=== PATIENT | male | born 1935 ===

== ENCOUNTER 2018-08-08 20:43 | Inpatient (IN) ==
[2018-08-08 22:08] LABS: BE 1.7 mmoll (-3.0-3.0); BLOOD TYPE ARTERIAL; HCO3-(ACT) 26.2 mmoll (20.0-26.0); METHB 0.7 % (0.0-1.5); O2(CT) 19.2 mL/dL (15.0-23.0); O2HB 94.5 % (95.0-99.0); PCO2(98.6) 32 mmHg (35-45); PO2(98.6) 81 mmHg (60-100); SAMPLE BLOOD; SAO2 95.9 % (95.0-100.0); THB 14.4 g/dL (11.5-17.4); pH(98.6) 7.49 (7.35-7.45)
[2018-08-08 22:11] LABS: ALLEN TEST YES; MODALITY CANNULA
[2018-08-08 22:58] LABS: BASO# 0.01 X1000 (0.0-0.2); BASO% 0.1 % (0.0-0.8); EOS# 0.01 X1000 (0.0-0.7); EOS% 0.1 % (0.0-10.0); HEMATOCRIT 42.5 % (42.0-52.0); HEMOGLOBIN 14.5 g/dL (14.0-18.0); IMM GRAN# 0.04 X1000 (0.0-0.04); IMM GRAN% 0.3 % (0.0-0.5); LYMPH# 0.47 X1000 (1.2-3.4); MCH 30.8 PG (27-31); MCHC 34.1 g/dL (33-37); MCV 90.2 FL (81-99); MONO# 0.34 X1000 (0.11-0.59); MONO% 2.2 % (1.7-9.3); MPV 10.6 FL (7.4-10.4); NEUT# 14.66 X1000 (1.4-6.5); NEUT% 94.3 % (42.2-75.2); PLT 218 X1000 (130-400); RBC 4.71 XMIL (4.7-6.1); RDW 14.5 % (11.5-14.5); WBC 15.53 X1000 (4.8-10.8)
[2018-08-08 23:08] LABS: ALBUMIN 3.5 g/dL (3.5-5.0); CALCIUM 9.6 mg/dL (8.8-10.2); CREATININE 1.7 mg/dL (0.7-1.2); POTASSIUM 4.3 mmol/L (3.5-5.1); TOTAL BILIRUBIN 0.5 mg/dL (0.20-1.00); TOTAL PROTEIN 7.2 g/dL (6.3-8.3)
[2018-08-08 23:35] LABS: BILIRUBIN URINE NEGATIVE (NEGATIVE); BLOOD URINE 4+ (NEGATIVE); CLARITY VERY CLOUDY (CLEAR); COLOR YELLOW; KETONE URINE NEGATIVE (NEGATIVE); LEUKOCYTES URINE 2+ (NEGATIVE); NITRITE URINE POSITIVE (NEGATIVE); PROTEIN URINE 2+(100 mg/dL) mg/dL (NEGATIVE); URINE RBC 20-40 /HPF (<10); URINE SOURCE CATH; UROBILINOGEN URINE NORMAL
[2018-08-08 23:36] LABS: URINE BACTERIA 3+ /HFP; URINE CRYSTAL CA OXALATE PRESENT /HPF; URINE EPITHELIAL CELLS <10 /HPF (<10)
[2018-08-09] LABS: UR AMPHETAMINES QUAL NONE DETECTED (NONE DETECT); UR BARBITUATES QUAL NONE DETECTED (NONE DETECT); UR BENZODIAZEPIN QUAL NONE DETECTED (NONE DETECT); UR CANNABINOIDS QUAL NONE DETECTED (NONE DETECT); UR COCAINE QUAL NONE DETECTED (NONE DETECT); UR METHADONE QUAL NONE DETECTED (NONE DETECT); UR METHAMPHETAMINE QUAL NONE DETECTED (NONE DETECT); UR OPIATES QUAL NONE DETECTED (NONE DETECT); UR OXYCODONE QUAL NONE DETECTED (NONE DETECT); UR PCP QUAL NONE DETECTED (NONE DETECT); UR PROPOXYPHENE QUAL NONE DETECTED (NONE DETECT); UR TCA QUAL PRESUMPTIVE POSITIVE (NONE DETECT)
[2018-08-09] MEDS ORDERED: MAXIPIME 2 GM in NS 100 ML IV ONE (00:46)
[2018-08-09] MEDS ORDERED: NS 1,000 ML IV ONE ×3 (00:48→02:30)
--- NOTE | 2018-08-09 00:58 | PROVIDER DOCUMENTATION ---
HPI-Fever - General Chief Complaint: Altered Mental Status Stated Complaint: General Adult Time Seen by Provider: 08/08/18 21:08 Source: family Allergies/Adverse Reactions: Patient Allergies Allergy/AdvReac Type Severity Reaction Status Date / Time canagliflozin [From Invokana] Allergy ANAPHYLAXIS Verified 08/08/18 13:48 dapagliflozin [From Farxiga] Allergy ANAPHYLAXIS Verified 08/08/18 13:48 Home Medications: Home Medication List Medication Instructions Recorded Confirmed Last Taken Type Atenolol 1 tab PO DAILY 08/08/18 08/08/18 08/08/18 07:00 History Azelastine 137 Mcg Nasal [place] 2 spray BELIA BID 08/08/18 08/08/18 08/08/18 07:00 History [Astelin Nasal [place]] Buspirone HCl [Buspar] 1 tab PO BID 08/08/18 08/08/18 08/08/18 07:00 History Cholecalciferol (Vitamin D3) 1 cap PO DAILY 08/08/18 08/08/18 08/08/18 07:00 History [Vitamin D3] Divalproex [Depakote] 1 tab PO QHS 08/08/18 08/08/18 08/07/18 19:00 History Donepezil [Aricept] 1 tab PO QHS 08/08/18 08/08/18 08/07/18 19:00 History Insulin Glargine,Hum.rec.anlog 40 units SQ QHS 08/08/18 08/08/18 08/07/18 19:00 History [Charissa Garcia] Insulin Lispro [Humalog] See Protocol SQ 4XDAY 08/08/18 08/08/18 Unknown History Metformin HCl 1 tab PO BID 08/08/18 08/08/18 08/08/18 09:00 History Mirtazapine [Remeron] 1 tab PO DAILY 08/08/18 08/08/18 08/07/18 19:00 History Multivitamin [Multi-Vitamin Daily] 1 tab PO DAILY 08/08/18 08/08/18 08/08/18 07: 00 History Quetiapine Fumarate [Seroquel] 1 tab PO DAILY 08/08/18 08/08/18 08/08/18 07:00 History Quetiapine Fumarate [Seroquel] 1 tab PO QHS 08/08/18 08/08/18 08/07/18 19:00 History Quinapril HCl [Accupril] 1 tab PO DAILY 08/08/18 08/08/18 08/08/18 07:00 History ROSUVAstatin [Crestor] 1 tab PO QHS 08/08/18 08/08/18 08/07/18 19:00 History Tramadol [Ultram] 1 tab PO Q6H PRN PRN 08/08/18 08/08/18 08/08/18 07:00 History Trazodone [Desyrel] 1 tab PO QHS 08/08/18 08/08/18 08/07/18 19:00 History - History of Present Illness-Fever Nature of Presenting Problem: altered mental status hx of dementia aggressive behavior t2dm Onset/Duration: reports: 24 hours ago Review of Systems - Adult - REVIEW OF SYSTEMS - ADULT Constitutional: reports: no symptoms reported Past History - Adult - PAST MEDICAL HISTORY-ADULT Review of Records: reports: Old Records Reviewed, Nursing Assessment Review, Medications Reviewed, Social history reviewed & non-contributory. Cardiovascular: reports: A-Fib Physical Exam-General - PHYSICAL EXAM-ADULT Initial Vital Signs Reviewed: Yes - CONSTITUTIONAL General Appearance: moderate distress, obtunded - EYES Eyes: PERRL/EOMI - HEAD, EARS, NOSE, MOUTH & THROAT HENMT: normocephalic/atraumatic, normal ENT inspection, TMs normal, dental decay - NECK Neck: full range of motion, supple - RESPIRATORY Respiratory: rales, rhonchi, other (sathya chan respiratory pattern) - CARDIOVASCULAR Cardiovascular: irregularly irregular - GASTROINTESTINAL (ABDOMEN) Abdominal Exam: soft - LYMPHATIC Lymphatic: no adenopathy - MUSCULOSKELETAL Back Exam: no CVA tenderness Extremity: normal range of motion, non-tender, normal gait Peripheral Pulses: dorsalis-pedis (R): 1+, dorsalis-pedis (L): 1+ - SKIN Integumentary: normal color, normal turgor - NEUROLOGIC Neurologic: grossly normal - PSYCHIATRIC Psych/Mental Status: oriented x 3 Progress - PLAN OF CARE/RESULTS Progress/Plan/Lab Results: Vital Signs - 8 hr 08/08/18 20:43 Temperature 98.7 F Pulse Rate 69 Respiratory Rate 20 Blood Pressure 117/59 O2 Sat by Pulse Oximetry 95 Laboratory Results - last 24 hr 08/08/18 08/08/18 08/08/18 20:53 22:00 22:28 WBC 15.53 H RBC 4.71 Hgb 14.5 Hct 42.5 MCV 90.2 MCH 30.8 MCHC 34.1 RDW Std Deviation 14.5 Plt Count 218 MPV 10.6 H Immature Gran % (Auto) 0.3 Neut % (Auto) 94.3 H Lymph % (Auto) 3.0 L [place] % (Auto) 2.2 Eos % (Auto) 0.1 Baso % (Auto) 0.1 Immature Gran # (Auto) 0.04 Neut # (Auto) 14.66 H Lymph # (Auto) 0.47 L [place] # (Auto) 0.34 Eos # (Auto) 0.01 Baso # (Auto) 0.01 Specimen Type ARTERIAL Sample Site R RADIAL pH 7.49 H pCO2 32 L pO2 81 HCO3 26.2 H Base Excess 1.7 Oxyhemoglobin 94.5 L ABG O2 Sat (Calculated) 19.2 ABG O2 Saturation 95.9 ABG Carboxyhemoglobin 0.80 ABG Methemoglobin 0.7 Hima Test YES A-a O2 Difference 107.0 Total Hemoglobin 14.4 Lactate 3.60 H Liter Flow 3.0 Blood Gas Modality CANNULA FiO2 % 32.0 Sodium Potassium Chloride Carbon Dioxide Anion Gap BUN Creatinine Estimated GFR/1.73 m2 BUN/Creatinine Ratio Glucose POC Glucose 282 H Calculated Osmolality Calcium Total Bilirubin AST ALT Alkaline Phosphatase Total Protein Albumin Globulin Albumin/Globulin Ratio Plasma Lactate TSH Urine Source Urine Color Urine Clarity Urine pH Ur Specific Gabbs Urine Protein Urine Ketones Urine Blood Urine Nitrite Urine Bilirubin Urine Urobilinogen Urine Microscopic RBC Urine WBC Urine Microscopic WBC Ur Epithelial Cells Urine Crystals Urine Bacteria Urine Glucose Urine Opiates Screen Ur Oxycodone Screen Urine Methadone Screen U Propoxyphene Qual Ur Barbituates Screen Ur Tricyclics Screen Ur Phencyclidine Scrn Ur Amphetamines Screen U Methamphetamines Scrn U Benzodiazepines Scrn Urine Cocaine Screen U Cannabinoids Screen Acetone Level 08/08/18 08/08/18 08/08/18 22:28 22:28 22:28 WBC RBC Hgb Hct MCV MCH MCHC RDW Std Deviation Plt Count MPV Immature Gran % (Auto) Neut % (Auto) Lymph % (Auto) [place] % (Auto) Eos % (Auto) Baso % (Auto) Immature Gran # (Auto) Neut # (Auto) Lymph # (Auto) [place] # (Auto) Eos # (Auto) Baso # (Auto) Specimen Type Sample Site pH pCO2 pO2 HCO3 Base Excess Oxyhemoglobin ABG O2 Sat (Calculated) ABG O2 Saturation ABG Carboxyhemoglobin ABG Methemoglobin Hima Test A-a O2 Difference Total Hemoglobin Lactate Liter Flow Blood Gas Modality FiO2 % Sodium 138 Potassium 4.3 Chloride 97 L Carbon Dioxide 25 Anion Gap 16 BUN 25 H Creatinine 1.7 H Estimated GFR/1.73 m2 39 BUN/Creatinine Ratio 15 Glucose 135 H POC Glucose Calculated Osmolality 282 Calcium 9.6 Total Bilirubin 0.50 AST 30 ALT 38 Alkaline Phosphatase 112 Total Protein 7.2 Albumin 3.5 Globulin 4.0 Albumin/Globulin Ratio 1.0 Plasma Lactate TSH 8.19 H Urine Source Urine Color Urine Clarity Urine pH Ur Specific Gab[place] Urine Protein Urine Ketones Urine Blood Urine Nitrite Urine Bilirubin Urine Urobilinogen Urine Microscopic RBC Urine WBC Urine Microscopic WBC Ur Epithelial Cells Urine Crystals Urine Bacteria Urine Glucose Urine Opiates Screen Ur Oxycodone Screen Urine Methadone Screen U Propoxyphene Qual Ur Barbituates Screen Ur Tricyclics Screen Ur Phencyclidine Scrn Ur Amphetamines Screen U Methamphetamines Scrn U Benzodiazepines Scrn Urine Cocaine Screen U Cannabinoids Screen Acetone Level NEGATIVE 08/08/18 08/08/18 08/08/18 22:28 23:19 23:19 WBC RBC Hgb Hct MCV MCH MCHC RDW Std Deviation Plt Count MPV Immature Gran % (Auto) Neut % (Auto) Lymph % (Auto) [place] % (Auto) Eos % (Auto) Baso % (Auto) Immature Gran # (Auto) Neut # (Auto) Lymph # (Auto) [place] # (Auto) Eos # (Auto) Baso # (Auto) Specimen Type Sample Site pH pCO2 pO2 HCO3 Base Excess Oxyhemoglobin ABG O2 Sat (Calculated) ABG O2 Saturation ABG Carboxyhemoglobin ABG Methemoglobin Hima Test A-a O2 Difference Total Hemoglobin Lactate Liter Flow Blood Gas Modality FiO2 % Sodium Potassium Chloride Carbon Dioxide Anion Gap BUN Creatinine Estimated GFR/1.73 m2 BUN/Creatinine Ratio Glucose POC Glucose Calculated Osmolality Calcium Total Bilirubin AST ALT Alkaline Phosphatase Total Protein Albumin Globulin Albumin/Globulin Ratio Plasma Lactate 4.4 H TSH Urine Source CATH Urine Color YELLOW Urine Clarity VERY CLOUDY A Urine pH 9.0 Ur Specific Gab[place] 1.010 Urine Protein 2+(100 mg/dL) A Urine Ketones NEGATIVE Urine Blood 4+ Urine Nitrite POSITIVE A Urine Bilirubin NEGATIVE Urine Urobilinogen NORMAL Urine Microscopic RBC 20-40 A Urine WBC 2+ A Urine Microscopic WBC 10-20 A Ur Epithelial Cells <10 Urine Crystals CA OXALATE PRESENT Urine Bacteria 3+ Urine Glucose 1+(100 mg/dL) A Urine Opiates Screen NONE DETECTED Ur Oxycodone Screen NONE DETECTED Urine Methadone Screen NONE DETECTED U Propoxyphene Qual NONE DETECTED Ur Barbituates Screen NONE DETECTED Ur Tricyclics Screen PRESUMPTIVE POSITIVE A Ur Phencyclidine Scrn NONE DETECTED Ur Amphetamines Screen NONE DETECTED U Methamphetamines Scrn NONE DETECTED U Benzodiazepines Scrn NONE DETECTED Urine Cocaine Screen NONE DETECTED U Cannabinoids Screen NONE DETECTED Acetone Level Orders Category Date Time Status CT HEAD W/O CONTRAST [CT] Stat Exams 08/08/18 23:24 Taken FLAT/UPRIGHT ABD/1 VIEW CHEST [RAD] Stat Exams 08/08/18 21:52 Taken ABG [RESP] Routine Lab 08/08/18 22:00 Completed ACETONE SERUM [CHEM] Stat Lab 08/08/18 22:28 Completed BLOOD CULTURE [BLDCUL] Stat Lab 08/08/18 21:55 Ordered CBC WITH ELECTRONIC DIFF [HEME] Stat Lab 08/08/18 22:28 Completed COMPREHENSIVE METABOLIC PANEL [CHEM] Stat Lab 08/08/18 22:28 Completed LACTATE, PLASMA [CHEM] Stat Lab 08/08/18 22:28 Completed TSH Stat Lab 08/08/18 22:[address] W/POSS RFLX CULT [URINALYSIS] Stat Lab 08/08/18 23:19 Completed URINE CULTURE [RM] Routine Lab 08/08/18 23:36 Ordered URINE DRUG SCREEN PL Stat Lab 08/08/18 23:19 Completed 0.9% Sodium Chloride Inj [Ns] 1,000 ml Med 08/09/18 00:48 Active IV 999 mls/hr CefEPIME [Maxipime] 2 gm Med 08/09/18 00:46 Active 0.9% Sodium Chloride Inj [Ns] 100 ml IV NOW Transfer/Admit Order [TRANSFER] Routine Transfer 08/09/18 00:49 Ordered Result Diagrams: 08/08/18 22:28 08/08/18 22:28 - XRAY 1 XRAY Study: Chest, other Impression: Abnormal (infiltrate left heart border) - CT/MRI 1 MRI Study: Brain Impression: Normal Departure - Departure Date of Disposition Decision: 08/09/18 Time of Disposition Decision: 01:04 DIAGNOSIS: Sepsis associated hypotension, Dementia, CAD (coronary artery disease) Disposition: ADMITTED INPATIENT 09 Certified Medical Emergency: Emergent Condition: Stable Referrals and Follow-Ups: None,PCP [Primary Care Provider] - - Critical Care Note This patient required my direct & personal management of CC.: No Attestation - Physician/ CRISTIN Attestation Patient care was provided by Advanced Practice Provider:: No The physician spent face to face time with patient:: Yes Advanced Practice Provider documentation review:: Supervising physician onsite and consulted in the evaluation and care of this patient. The physician did have a face to face encounter with the patient.
[2018-08-09] MEDS ORDERED: VANCOMYCIN 1 GM/NS 1 GM/250 ML IVPB IV ONE ×2 (02:52→09:00)
[2018-08-09] MEDS ORDERED: D50W SYRINGE IV ONE ×2 (02:55→16:03)
[2018-08-09 04:08] LABS: INR 1.2; PROTIME 15.8 Seconds (11.0-16.0)
[2018-08-09 04:09] LABS: PTT 35.5 Seconds (22.3-41.8)
[2018-08-09] MEDS: HUMALOG (PARKWAY) SUBQ SCH ×4 (06:40→21:14)
--- NOTE | 2018-08-09 06:55 | Diag Imaging Result Doc PS360 ---
FLAT/UPRIGHT ABD/1 VIEW CHEST - 08/08/2018 INDICATION: sob TECHNIQUE: COMPARISON: None FINDINGS: There is a left-sided dual-chamber pacemaker. There are sternotomy wires. There is cardiomegaly. Lung volumes are low with bibasilar nonspecific atelectasis. 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 There is mild constipation. No bowel obstruction or free air. IMPRESSION: Nonspecific findings. Electronically signed by Royce Bojorquez 08/09/2018 6:53 AM
--- NOTE | 2018-08-09 07:02 | Diag Imaging Result Doc PS360 ---
CT HEAD W/O CONTRAST - 08/08/2018 INDICATION: ams COMPARISON: None FINDINGS: There is mild diffuse cerebral atrophy. There is moderately advanced periventricular white matter chronic microvascular disease. No intracranial mass or hemorrhage. The skull is intact. The sinuses, mastoids, and middle ears are clear. IMPRESSION: Atrophy and chronic microvascular disease. No acute disease. This exam was performed using automated exposure control, adjustment of mA or kV according to patient size, and/or use of iterative reconstruction technique Electronically signed by Royce Bojorquez 08/09/2018 7:00 AM
[2018-08-09] MEDS ORDERED: NS 1,000 ML ONE (07:45)
[2018-08-09] MEDS ORDERED: D5 1/2 NS 1,000 ML IV SCH (08:45)
[2018-08-09] MEDS ORDERED: VANCOMYCIN IV PER PHARMACY MISC SCH (08:45)
[2018-08-09] MEDS ORDERED: DOPAMINE 800 MG/D5W 800 MG/500 ML IV.SOLN IV SCH (08:45)
[2018-08-09] MEDS ORDERED: DOPAMINE 800 MG/D5W 800 MG/250 ML IV.SOLN IV SCH (08:58)
[2018-08-09] MEDS: LEVOPHED 8 MG in D5 1/2 NS 250 ML IV SCH (09:24)
[2018-08-09 09:44] LABS: ALBUMIN 2.8 g/dL (3.5-5.0); BASO# 0.03 X1000 (0.0-0.2); BASO% 0.1 % (0.0-0.8); CALCIUM 8.4 mg/dL (8.8-10.2); CREATININE 1.8 mg/dL (0.7-1.2); EOS# 0.01 X1000 (0.0-0.7); HEMATOCRIT 35.4 % (42.0-52.0); HEMOGLOBIN 11.7 g/dL (14.0-18.0); IMM GRAN# 0.12 X1000 (0.0-0.04); IMM GRAN% 0.5 % (0.0-0.5); LYMPH# 1.21 X1000 (1.2-3.4); LYMPH% 4.6 % (20.5-51.1); MCH 30.5 PG (27-31); MCHC 33.1 g/dL (33-37); MCV 92.2 FL (81-99); MONO# 2.06 X1000 (0.11-0.59); MONO% 7.8 % (1.7-9.3); NEUT# 23.13 X1000 (1.4-6.5); PLT 166 X1000 (130-400); POTASSIUM 4.9 mmol/L (3.5-5.1); RBC 3.84 XMIL (4.7-6.1); RDW 14.8 % (11.5-14.5); TOTAL BILIRUBIN 0.4 mg/dL (0.20-1.00); TOTAL PROTEIN 5.9 g/dL (6.3-8.3); WBC 26.56 X1000 (4.8-10.8)
--- NOTE | 2018-08-09 09:58 | HISTORY AND PHYSICAL ---
ADDENDUM: Please find the details of the complete H and P done by [employer], Ms Jaja Cotter, in the chart. Briefly, Mr. Hernandez is said to be a resident of [facility], who has an indwelling catheter. I am unsure of the reason why. In any case, I understand he had also recently been treated for a right hip fracture. He is on a lot of psychotropic medications as well at home, and among his home medications, there is insulin, there are blood pressure medications, statin, metformin, and as I said, a lot of psychotropic medications. I understand that while he was in the custodial, he was getting more confused, more combative and disoriented, so he was sent to [facility] for psychiatric evaluation. He was just there for about an hour and he was sent over here. Upon presentation to the ER, at one point, his blood pressure was 117/59. It dropped to 95/53 and since then he has remained hypotensive. The patient was admitted to the ICU for suspicion of septic shock. PHYSICAL EXAMINATION: CURRENT VITALS: Blood pressure is 93/56 with a MAP of 72. Pulse is 66. Respiration is 23. Temperature 99.1 degrees. GENERAL EXAM: Mr. Hernandez is an 83-year-old gentleman. He is in bed. He seems to be breathing well without any accessory muscle use. HEENT: Mucosa is slightly dry. Anicteric. Acyanotic. NECK: Supple. There is no JVD. CHEST: Air entry is bilaterally reduced. Some faint crackles posteriorly in both lung simpson. CARDIOVASCULAR: Regular rate and rhythm. There are no murmurs, no rubs, no gallops. ABDOMEN: Soft. Bowel sounds are present. EXTREMITIES: No pedal edema. Distal pulses are present. CENTRAL NERVOUS SYSTEM: The patient is drowsy, eyes closed, but will withdraw very actively both lower extremities to painful stimulation. He also keeps mumbling certain words and stuff that I could not understand. MUSCULOSKELETAL: There is a healed scar on the right hip. There is also a sternotomy scar and there is a left anterior chest wall pacemaker generator pocket. LABORATORY DATA: This is from yesterday. WBC 15.53, hemoglobin 14.5, platelet count 218,000. There is no manual differential. Chemistry is also from yesterday. Sodium 138, potassium 4.3, chloride 97, bicarb 26, anion gap 16, BUN 25, creatinine 1.7. The patient TSH was 8.19. I did not see levothyroxine as one of his medications. We will repeat this with a free TSH. DIAGNOSTIC STUDIES: A flat and upright abdomen with chest view showed nonspecific, but the lung volumes are low with bibasilar nonspecific atelectasis. A CT scan of the head shows atrophy and chronic microvascular disease. No acute disease. CURRENT MEDICATIONS: 1. Cefepime 1 g q.12. 2. Half-normal saline with dextrose at 75 mL per hour. 3. Insulin sliding scale. 4. Vancomycin per pharmacy protocol. ASSESSMENT: 1. Septic shock. Presumably this is coming from the genitourinary system. However, pneumonia is also a high probability. The patient is currently covered with cefepime and vancomycin. We are going to continue this and wait for the cultures. 2. Altered mental status, presumably due to infectious encephalopathy. However, the patient is also on a lot of psychotropic medications and I would not be surprised if this is a combination of multiple factors, including infection, drugs, and a patient with baseline dementia. 3. Catheter-associated urinary tract infection. The patient does have an indwelling Escalante catheter. We are not sure what was the indication why and how long the catheter has been there. At any point, I think the catheter has been changed over here by our nursing staff and urine culture has already been ordered. We will continue with the current antibiotic coverage and wait for the report. 4. Elevated troponin. I presume this is due to a demand mismatch because of the septic shock. We are going to continue to follow this. If it is trending up, we will consult Cardiology. 5. Renal failure. Creatinine is at 1.7. We do not have any other previous labs in our system to compare. We are going to continue with this current hydration and re-evaluate his chemistries. If it is getting any worse, we will do renal studies and get Nephrology on board. 6. Abnormal TSH. The patient's TSH is 8.19. I do not see any medication in his list to suggest that he has thyroid abnormalities. We will repeat this and also do free TSH to make sure that he does not have any thyroid gland abnormality, being either primary hypothyroidism or secondary hyperthyroidism. 7. History of severe dementia. PLAN: In general, I think Mr. Hernandez is critically sick, but seems to be stable. I have been told that he is a possible DNR level 1, however, we are waiting on the family members to come, to discuss his resuscitation status. He is quite complicated right from the admission. We are going to repeat his lab work and re-evaluate him in about 4 hours. If he seems to be getting better, we will keep him here. However, if he is getting any worse in terms of his chemistry and clinical, and he is not DNR, then we will make arrangements to get him transferred to [facility] for a higher level of care. Critical time spent is 45 minutes. cc: Sylvester Martínez MD
[2018-08-09] MEDS: D5 1/2 NS 1,000 ML IV SCH ×2 (10:33→21:11)
[2018-08-09] MEDS: ZYVOX 600 MG/D5W 600 MG/300 ML IVPB IV SCH ×2 (10:56→21:10)
--- NOTE | 2018-08-09 11:03 | HISTORY AND PHYSICAL ---
PRIMARY CARE PHYSICIAN: Dr. Jean. CHIEF COMPLAINT: Altered mental status with aggressive behavior. HISTORY OF PRESENTING ILLNESS: This is an 83-year-old male who was sent to [facility] ER from [facility] where he had been for approximately an hour after being sent from [facility] for having some increased altered mental status and increased agitation. He was noted to be disoriented and confused, and when he arrived to the emergency room his laboratory data showed a white blood cell count of 15.53. His BUN was 25 and creatinine 1.7. His plasma lactate was 4.4. His troponin was 0.286. Urinalysis showed positive nitrites, 2+ white blood cells, and 3+ bacteria. It is noted that he had an indwelling Escalante catheter from the facility, and it is unknown at this time the date of the last change, but we have changed his Escalante catheter at this time. Acetone level was negative. We did a head CT that showed atrophy and chronic microvascular disease. No acute disease. An abdominal x-ray that showed nonspecific findings. He was noted upon arrival to the intensive care unit around 02:00 this morning to drop his blood pressure to 68/47. He has had 2-1/2 L total of normal saline. Then, he had began a L at 150 mL an hour. He then dropped his blood pressure to 87/42, and was placed in wrist restraints due to his agitation and an injury to self and risk of pulling out his medical devices. He has now been started on Levophed. We rechecked his labs this morning, and it showed a white blood cell count of 26.56 so we placed him on cefepime 1 g IV q.12 and vancomycin per pharmacy protocol. We will also place him on Levophed per protocol. He was noted to have a drop in his blood sugar into the 30s overnight and was given an amp of D50 and it only came up to 68 so we started him on D5 and a half NS at 100 mL an hour. We will do pattern blood sugars, and he is being admitted again to the intensive care unit for further evaluation and treatment. The nurse has spoken to a family member who will come up today and discuss code status on this patient also but at this time he is noted to be a full code. PAST MEDICAL HISTORY: Cardiomegaly, retention of urine, Alzheimer's late onset , atrial fibrillation, GERD, hypertensive heart disease without heart failure, abdominal hernia, hyperlipidemia, diabetic neuropathy, chronic kidney disease, bilateral hearing loss, diabetes, asthma, vitamin D deficiency, osteoarthritis, and BPH. PAST SURGICAL HISTORY: Right hip replacement and CABG. FAMILY HISTORY: Reviewed and noncontributory. SOCIAL HISTORY: Currently, resides at [facility]. No tobacco, alcohol or illicit drug use. ALLERGIES: Invokana and Farxiga HOME MEDICATIONS: We will need to obtain a current list and restart as appropriate. We will place an order for nursing to update and confirm home medications. Then, we will review and restart as appropriate. LABORATORY: Labs showed a white blood cell count of 15.53, hemoglobin 14.5, hematocrit 42.5, and platelets 218,000. Repeat labs this morning did show a white blood cell count of 26.56. PT and INR of 15.8 and 1.20. ABG showed a pH of 7.49, pCO2 of 32, PO2 of 81, bicarbonate 26.2, and this was on 3 L via nasal cannula. Sodium of 138, potassium 4.3, chloride 97, CO2 25 , BUN 25, creatinine 1.7, glucose 135. Troponin was 0.286. Plasma lactate of 4.43. TSH of 8.19. We did recheck a troponin this morning that went down to 0.18. He is noted to have an increase in his BUN and creatinine at 30 and 1.8 this morning also. Urinalysis with positive nitrites, 2+ white blood cells, and 3+ bacteria. Urine drug screen was presumptive positive for tricyclics, and an acetone level was negative. CT of the head showed atrophy and chronic microvascular disease but no acute disease. Abdomen x-ray showed nonspecific findings. There were low lung volumes with bibasilar nonspecific atelectasis also. REVIEW OF SYSTEMS: Unable to obtain from patient. PHYSICAL EXAMINATION: VITAL SIGNS: Temperature 98.7 degrees, pulse 69, respirations 20, blood pressure 117/59. Approximately 6 hours after arriving, his blood pressure began to drop and got as low as 68/47. He has received 3 L of fluid basically of normal saline and his blood pressure was only 87/42 this morning. HEENT: Normocephalic, atraumatic. Normal ENT inspection. Oropharynx and nares are clear. EYES: Pupils are equal, round, and reactive to light. Unable to assess extraocular movement at this time due to lethargy. NECK: Normal inspection. Normal range of motion. LUNGS: Clear to auscultation bilaterally with equal lung expansion and chest wall movement. HEART: Regular rate and rhythm. No murmurs, rubs, or gallops. ABDOMEN: Soft, nontender, and nondistended. Bowel sounds are present x4 quadrants. SKIN: He is noted to have a stage II to his coccyx, and we will consult Wound Care for treatment. MUSCULOSKELETAL: He appears to have good strength as he had to be placed in soft wrist restraints due to his agitation and pulling at his medical devices. NEUROLOGICAL: Unable to assess the entire neurological status at this time due to his altered mental status with lethargy. ASSESSMENT: 1. Septic shock. 2. Urinary tract infection. 3. Hypotension. 4. Acute kidney injury. 5. Leukocytosis. 6. Diabetes type 2 with hypoglycemia. 7. Elevated TSH with no history of hypothyroidism. 8. Stage II to coccyx. PLAN: He was admitted to the intensive care unit, and placed on pattern blood sugars. Neurological checks q.4 hours for 24 hours. Placed on telemetry per O2 per protocol. We will consult Wound Care. Placed on a diabetic diet, but again at this time he is not able to eat anything due to his altered mentation. Blood cultures x2 are pending. Urine culture is pending. He is on D5 and a half NS at 100 mL an hour. Placed on Levophed per protocol. Cefepime 1 g IV q.12, Zyvox 600 mg IV q.12, vancomycin. We will recheck a CBC and BMP in the morning. Again, we will discuss with family code status once they arrive to give us that, but at this time patient is a full code. We did also change out his indwelling Escalante catheter, and got immediate return of tea-colored urine. We will await his urine culture as well and blood cultures to see if he is bacteremic. Further orders after seen by attending. Dictated by LIZETTE Wu for Sylvester Martínez MD cc: LIZETTE Wu MD [facility]
[2018-08-09] MEDS: MAXIPIME 1 GM in NS 50 ML IV SCH (13:09)
[2018-08-09] MEDS: OFIRMEV 1000 MG/ISOTONIC SOLN 1,000 MG/100 ML BOTTLE IV PRN (13:58)
[2018-08-09] MEDS ORDERED: SOLU-CORTEF IV ONE (17:05)
--- NOTE | 2018-08-09 17:30 | PROGRESS NOTE ---
DATE: 08/09/2018 UPDATE PROGRESS NOTE: Mr. Hernandez was slightly febrile this morning, and he was given Tylenol and that it got better. He also ran a few times hypoglycemic, even on the D5. He became sweaty and less responsive. When I came to re-evaluate him, he was able to open his eyes and move to extreme painful stimulation. I was able to speak with the and the sister, and we did discuss his DNR status. According to the , Mr. Hernandez would not want any intubation or chest compression, so she would recommend that we keep his status as DNR level 1, and this was discussed in the presence of his attending nurse today. Mr. Hernandez continues to be borderline hypotensive, even on the norepinephrine, so I am going to start him on stress doses of hydrocortisone, just in case he has transient adrenal insufficiency. cc: Sylvester Martínez MD
[2018-08-09] MEDS: SODIUM CHLORIDE 0.9% IV PRN (17:36)
[2018-08-10] MEDS: LEVOPHED 8 MG in D5 1/2 NS 250 ML IV SCH (00:18)
[2018-08-10] MEDS: MAXIPIME 1 GM in NS 50 ML IV SCH (01:17)
[2018-08-10] MEDS: SOLU-CORTEF IV SCH ×3 (01:17→17:58)
[2018-08-10] MEDS: SODIUM CHLORIDE 0.9% IV PRN (01:18)
[2018-08-10 06:09] LABS: BASO# 0.01 X1000 (0.0-0.2); EOS# 0.01 X1000 (0.0-0.7); HEMATOCRIT 35.4 % (42.0-52.0); HEMOGLOBIN 11.3 g/dL (14.0-18.0); IMM GRAN# 0.06 X1000 (0.0-0.04); IMM GRAN% 0.3 % (0.0-0.5); LYMPH# 0.94 X1000 (1.2-3.4); LYMPH% 4.3 % (20.5-51.1); MCH 29.8 PG (27-31); MCHC 31.9 g/dL (33-37); MCV 93.4 FL (81-99); MONO# 1.03 X1000 (0.11-0.59); MONO% 4.7 % (1.7-9.3); MPV 11.3 FL (7.4-10.4); NEUT# 19.95 X1000 (1.4-6.5); NEUT% 90.7 % (42.2-75.2); PLT 143 X1000 (130-400); RBC 3.79 XMIL (4.7-6.1); RDW 15.3 % (11.5-14.5)
[2018-08-10 07:21] LABS: AGAP 11; BUN 26 mg/dL (8-22); CHLORIDE 105 mmol/L (98-107); COSMO 292; CREATININE 1.1 mg/dL (0.7-1.2); ESTIMATED GFR > 60; GLUCOSE 206 mg/dL (70-104); POTASSIUM 4.3 mmol/L (3.5-5.1); SODIUM 141 mmol/L (136-145); TCO2 25 mmol/L (25-35)
[2018-08-10] MEDS ORDERED: VISINE OPH DROPS BOTH EYES PRN (09:48)
[2018-08-10] MEDS: HUMALOG (PARKWAY) SUBQ SCH ×4 (09:56→20:01)
[2018-08-10] MEDS: OFIRMEV 1000 MG/ISOTONIC SOLN 1,000 MG/100 ML BOTTLE IV PRN ×2 (10:02→19:58)
[2018-08-10 10:49] LABS: LYMPHS 4 % (21-51); MONO 4 % (1-9); SEGS 92 % (42-75)
[2018-08-10] MEDS: D5 1/2 NS 1,000 ML IV SCH ×2 (12:06→19:00)
--- NOTE | 2018-08-10 12:09 | PROGRESS NOTE ---
DATE: 08/10/2018 SUBJECTIVE: Patient is awake and responsive. The patient's family reported the patient was having altered mental status, but he has improved mental status this morning and woke up. OBJECTIVE: Vital Signs: Temperature 99 degrees Fahrenheit, pulse 86 per minute, respiratory rate 20 per minute, blood pressure 110/55, pulse oximetry 93% on 2 L of oxygen via nasal cannula. General: Patient is alert and awake, but does appear to be confused at times. Cardiovascular: First and second heart sounds are audible without any murmurs or gallops. Respiratory: Bilateral lung air entry is good without any rales or rhonchi. Gastrointestinal: Abdomen is soft and nondistended. Normal bowel sounds are present. DIAGNOSTIC DATA: CBC shows WBC count of 22,000 with 90.7% neutrophils. Chemistry showed glucose levels of 206. Rest of the basic metabolic panel is nondiagnostic. Urine and blood cultures both have been positive for gram-negative rods. The sensitivity report of which is pending at this time. IMPRESSION: 1. Septic shock secondary to urinary tract infection secondary to gram-negative rods. 2. Type 2 diabetes mellitus. PLAN: The patient has been started on cefepime, which will be continued. Initially, he was given vancomycin IV, but that has been discontinued since he has grown gram-negative rods in blood and urine cultures. He is clinically responding to this therapy and seems to have improved. We are also going to continue with IV hydrocortisone and lispro insulin as per sliding scale subcutaneously. I am going to have a repeat CBC and BMP in the morning tomorrow, and will also get a chest x-ray done in the morning tomorrow. The patient is DNR level 1 that has already been ordered on the EMR. Further recommendations will be given as per hospital course. cc: Mitra Kumar MD
[2018-08-10] MEDS: MAXIPIME 2 GM in NS 100 ML IV SCH (14:00)
[2018-08-10] MEDS: HALDOL IV PRN ×2 (17:59→19:58)
[2018-08-11] MEDS: HALDOL IV PRN ×5 (01:00→22:35)
[2018-08-11] MEDS: SOLU-CORTEF IV SCH ×3 (01:00→16:06)
[2018-08-11] MEDS: MAXIPIME 2 GM in NS 100 ML IV SCH ×2 (01:00→13:13)
[2018-08-11] MEDS: D5 1/2 NS 1,000 ML IV SCH ×3 (03:00→16:40)
[2018-08-11] MEDS: HUMALOG (PARKWAY) SUBQ SCH ×4 (06:57→19:52)
--- NOTE | 2018-08-11 07:06 | Diag Imaging Result Doc PS360 ---
EXAM: CHEST-PORTABLE HISTORY: Sepsis TECHNIQUE: Portable chest single view COMPARISON: 08/08/2018 FINDINGS: The lungs are well expanded. Heart is mildly enlarged. There are sternal wires and a left-sided pacemaker. Mild increased interstitial markings throughout the lungs. These are slightly less pronounced in the lung bases. No consolidation. No pleural effusions identified. IMPRESSION: Mild interval improvement Electronically signed by Wood Olivera 08/11/2018 7:04 AM
[2018-08-11 08:07] LABS: BASO# 0.01 X1000 (0.0-0.2); BASO% 0.1 % (0.0-0.8); HEMATOCRIT 33.6 % (42.0-52.0); HEMOGLOBIN 11.1 g/dL (14.0-18.0); IMM GRAN# 0.03 X1000 (0.0-0.04); IMM GRAN% 0.2 % (0.0-0.5); LYMPH# 0.71 X1000 (1.2-3.4); LYMPH% 5.1 % (20.5-51.1); MCH 30.2 PG (27-31); MCV 91.6 FL (81-99); MONO# 0.53 X1000 (0.11-0.59); MONO% 3.8 % (1.7-9.3); MPV 10.8 FL (7.4-10.4); NEUT# 12.55 X1000 (1.4-6.5); NEUT% 90.8 % (42.2-75.2); PLT 115 X1000 (130-400); RBC 3.67 XMIL (4.7-6.1); RDW 14.8 % (11.5-14.5); WBC 13.83 X1000 (4.8-10.8)
[2018-08-11 08:16] LABS: AGAP 12; BUN 21 mg/dL (8-22); CALCIUM 8.1 mg/dL (8.8-10.2); CHLORIDE 105 mmol/L (98-107); COSMO 287; CREATININE 0.9 mg/dL (0.7-1.2); ESTIMATED GFR > 60; GLUCOSE 119 mg/dL (70-104); POTASSIUM 3.2 mmol/L (3.5-5.1); SODIUM 142 mmol/L (136-145); TCO2 26 mmol/L (25-35)
[2018-08-11 08:51] LABS: LYMPHS 9 % (21-51); MONO 3 % (1-9); SEGS 88 % (42-75)
[2018-08-11] MEDS ORDERED: VANCOMYCIN 1,500 MG in NS 250 ML IV SCH (09:00)
[2018-08-11] MEDS ORDERED: KLOR-CON PO ONE (11:58)
--- NOTE | 2018-08-11 13:09 | PROGRESS NOTE ---
DATE: 08/11/2018 SUBJECTIVE: The patient seems to be slightly disoriented, but no acute complaints have been reported. Family reports that his condition has improved. OBJECTIVE: Vital Signs: Temperature 98.3 degrees, pulse 64 per minute, respiratory rate 26 per minute, blood pressure 164/66, pulse oximetry 100% on 2 L of oxygen via Venturi mask. Cardiovascular System: First and second heart sounds are audible without any murmurs or gallops. Respiratory System: No respiratory distress noted. Bilateral lung air entry is moderately decreased but there are no rales or rhonchi present on auscultation. Gastrointestinal: Abdomen is soft and nondistended. Normal bowel sounds are present. DIAGNOSTIC DATA: CBC shows improved WBC count of 13.83. In comparison, his white blood cell count was 22,000 yesterday. The rest of the CBC is nondiagnostic. Chemistry showed potassium levels of 3.2. The rest of the basic metabolic panel is nondiagnostic. Chest x-ray done this morning showed some interstitial markings in both the lungs, which are less pronounced at the bases and there is mild interval improvement. Blood and urine cultures both grew Proteus mirabilis that is sensitive to Zosyn, Unasyn, amikacin, cefazolin and tobramycin. It is resistant to levofloxacin, ampicillin and Bactrim. IMPRESSION: 1. Septic shock secondary to Proteus mirabilis urinary tract infection and Proteus mirabilis bacteremia. 2. Type 2 diabetes mellitus. 3. Hypokalemia. PLAN: The patient has been receiving IV cefepime to which he has clinically responded and I believe we need to continue with that. He has been getting hydrocortisone 100 mg IV every 8 hours, and I am going to reduce the dose to 50 mg IV 8 hours. He will continue with lispro insulin as per sliding scale, and I am going to give him a dose of potassium chloride 20 mEq today. We are going to have repeat labs including CBC, BMP and magnesium levels tomorrow. He can probably be transferred to the floor tomorrow if his condition gets further improved. cc: Mitra Kumar MD
[2018-08-11] MEDS: OFIRMEV 1000 MG/ISOTONIC SOLN 1,000 MG/100 ML BOTTLE IV PRN (19:40)
[2018-08-12] MEDS: SOLU-CORTEF IV SCH ×2 (01:00→09:49)
[2018-08-12] MEDS: MAXIPIME 2 GM in NS 100 ML IV SCH ×2 (01:00→13:07)
[2018-08-12] MEDS: D5 1/2 NS 1,000 ML IV SCH ×2 (02:59→13:06)
[2018-08-12] MEDS: HALDOL IV PRN ×3 (03:00→19:10)
[2018-08-12] MEDS: HUMALOG (PARKWAY) SUBQ SCH ×5 (03:00→20:54)
[2018-08-12 07:12] LABS: EOS# 0.02 X1000 (0.0-0.7); EOS% 0.2 % (0.0-10.0); HEMATOCRIT 34.7 % (42.0-52.0); HEMOGLOBIN 11.3 g/dL (14.0-18.0); IMM GRAN# 0.04 X1000 (0.0-0.04); IMM GRAN% 0.3 % (0.0-0.5); LYMPH# 1.32 X1000 (1.2-3.4); LYMPH% 10.8 % (20.5-51.1); MCH 30.1 PG (27-31); MCHC 32.6 g/dL (33-37); MCV 92.3 FL (81-99); MONO% 6.5 % (1.7-9.3); MPV 11.7 FL (7.4-10.4); NEUT# 10.07 X1000 (1.4-6.5); NEUT% 82.2 % (42.2-75.2); PLT 116 X1000 (130-400); RBC 3.76 XMIL (4.7-6.1); RDW 14.7 % (11.5-14.5); WBC 12.25 X1000 (4.8-10.8)
[2018-08-12 07:41] LABS: AGAP 11; BUN 19 mg/dL (8-22); CHLORIDE 106 mmol/L (98-107); COSMO 291; CREATININE 0.9 mg/dL (0.7-1.2); ESTIMATED GFR > 60; GLUCOSE 141 mg/dL (70-104); MAGNESIUM 1.8 mg/dL (1.5-2.7); POTASSIUM 3.5 mmol/L (3.5-5.1); SODIUM 144 mmol/L (136-145); TCO2 27 mmol/L (25-35)
[2018-08-12] MEDS ORDERED: KLOR-CON PO ONE (09:27)
[2018-08-12] MEDS: SODIUM CHLORIDE 0.9% IV PRN (09:51)
--- NOTE | 2018-08-12 12:40 | PROGRESS NOTE ---
DATE: 08/12/2018 SUBJECTIVE: Patient is more alert this morning and is able to communicate but still very confused. OBJECTIVE: Vital Signs: Temperature 97.9 degrees, pulse 58 per minute, respiratory rate 12 per minute, blood pressure 128/64, pulse oximetry 98% on 2 L of oxygen via nasal cannula. General: Patient is alert and oriented x3. He does not appear to be in any acute distress. Cardiovascular System: First and second heart sounds are audible without any murmurs or gallops. Respiratory System: No respiratory distress noted. Bilateral lung air entry is moderately decreased, but there are no rales or rhonchi present on auscultation. Gastrointestinal System: Abdomen is soft and nondistended. Normal bowel sounds are present. DIAGNOSTIC DATA: CBC shows WBC count of 12.25 with 82.2% neutrophils. This is improved as compared to white blood cell count of 13.83 yesterday. Basic metabolic panel done this morning is nondiagnostic. Chest x-ray done yesterday did not have any significant findings. He has grown Proteus mirabilis in urine and blood cultures. IMPRESSION: 1. Septic shock that has now improved. Urinary tract infection and bacteremia secondary to Proteus mirabilis. 2. Type 2 diabetes mellitus. PLAN: We are going to continue with cefepime intravenously along with IV fluids. His septic shock has improved, and therefore, I am going to discontinue hydrocortisone IV. We will keep giving him supportive care and keep him on lispro insulin as per sliding scale for his diabetes. He can probably be transferred to the regular floor by tomorrow. Further recommendations will be given as per hospital course. cc: Mirta Kumar MD
[2018-08-12] MEDS: OFIRMEV 1000 MG/ISOTONIC SOLN 1,000 MG/100 ML BOTTLE IV PRN (19:11)
[2018-08-13] MEDS: MAXIPIME 2 GM in NS 100 ML IV SCH ×2 (01:34→13:54)
[2018-08-13] MEDS: HALDOL IV PRN (01:34)
[2018-08-13] MEDS: D5 1/2 NS 1,000 ML IV SCH ×2 (01:35→09:02)
[2018-08-13 05:54] LABS: BASO# 0.01 X1000 (0.0-0.2); BASO% 0.1 % (0.0-0.8); EOS# 0.06 X1000 (0.0-0.7); EOS% 0.5 % (0.0-10.0); HEMATOCRIT 36.2 % (42.0-52.0); HEMOGLOBIN 11.9 g/dL (14.0-18.0); IMM GRAN# 0.05 X1000 (0.0-0.04); IMM GRAN% 0.4 % (0.0-0.5); LYMPH# 1.31 X1000 (1.2-3.4); LYMPH% 10.7 % (20.5-51.1); MCH 30.1 PG (27-31); MCHC 32.9 g/dL (33-37); MCV 91.6 FL (81-99); MONO# 1.32 X1000 (0.11-0.59); MONO% 10.8 % (1.7-9.3); MPV 10.8 FL (7.4-10.4); NEUT# 9.51 X1000 (1.4-6.5); NEUT% 77.5 % (42.2-75.2); PLT 99 X1000 (130-400); RBC 3.95 XMIL (4.7-6.1); RDW 14.4 % (11.5-14.5); WBC 12.26 X1000 (4.8-10.8)
[2018-08-13] MEDS: HUMALOG (PARKWAY) SUBQ SCH ×4 (05:58→20:46)
[2018-08-13 06:07] LABS: AGAP 9; BUN 13 mg/dL (8-22); CALCIUM 7.6 mg/dL (8.8-10.2); CHLORIDE 103 mmol/L (98-107); COSMO 285; CREATININE 0.7 mg/dL (0.7-1.2); ESTIMATED GFR > 60; GLUCOSE 190 mg/dL (70-104); POTASSIUM 2.9 mmol/L (3.5-5.1); SODIUM 140 mmol/L (136-145); TCO2 29 mmol/L (25-35)
[2018-08-13] MEDS ORDERED: KLOR-CON PO ONE (08:27)
[2018-08-13] MEDS ORDERED: LEVOPHED 8 MG in D5 1/2 NS 250 ML IV PRN (15:15)
--- NOTE | 2018-08-13 23:42 | PROGRESS NOTE ---
DATE: 08/13/2018 SUBJECTIVE: The patient is still confused and unable to communicate. He is calm this morning. PHYSICAL EXAMINATION: Vital Signs: Temperature 98.7, pulse 59, respiratory rate 20, blood pressure 164/70. General: Patient is calm. He is in no current respiratory distress. He does still require restraints for his own safety, as well as safety of the staff, as he easily gets confused and agitated. HEENT: Normocephalic. Neck: Supple. Cardiovascular: Regular rate. No murmurs. Chest: Clear, nonlabored, although moderately decreased, but equal bilaterally. Abdomen: Soft, nondistended, nontender. Extremities: Moves all extremities. ASSESSMENT: 1. Leukocytosis. White count has dropped from 26, down to 12. 2. Thrombocytopenia. His platelets continue to decline very slowly, from 166 down to 99. 3. Hypokalemia. Will replace. 4. Acute renal failure. Continues to improve. Currently at 0.7. 5. Sepsis, secondary to urinary tract infection and bacteremia. 6. Urinary tract infection and bacteremia secondary to Proteus mirabilis. 7. Type 2 diabetes. 8. Metabolic encephalopathy secondary to urinary infection. 9. Septic shock with hypotension, resolved. The patient is currently off Levophed. PLAN: We will continue patient in the hospital. Continue cefepime. Continue to follow his thrombocytopenia. Will follow. cc: Gigi Jerez MD
[2018-08-14] MEDS: MAXIPIME 2 GM in NS 100 ML IV SCH ×2 (02:32→13:07)
[2018-08-14] MEDS: HUMALOG (PARKWAY) SUBQ SCH ×4 (06:34→21:07)
[2018-08-14 06:54] LABS: HEMATOCRIT 34.2 % (42.0-52.0); HEMOGLOBIN 11.4 g/dL (14.0-18.0); MCH 30.1 PG (27-31); MCHC 33.3 g/dL (33-37); MCV 90.2 FL (81-99); MPV 11.7 FL (7.4-10.4); RBC 3.79 XMIL (4.7-6.1); RDW 14.2 % (11.5-14.5); WBC 14.98 X1000 (4.8-10.8)
[2018-08-14 07:11] LABS: AGAP 10; ALBUMIN 2.6 g/dL (3.5-5.0); ALKALINE PHOSPHATASE 116 U/L (32-122); BUN 11 mg/dL (8-22); CHLORIDE 103 mmol/L (98-107); COSMO 283; CREATININE 0.7 mg/dL (0.7-1.2); ESTIMATED GFR > 60; GLUCOSE 101 mg/dL (70-104); GOT 32 U/L (10-34); GPT 106 U/L (10-44); SODIUM 142 mmol/L (136-145); TCO2 29 mmol/L (25-35); TOTAL PROTEIN 5.9 g/dL (6.3-8.3)
[2018-08-14] MEDS ORDERED: KLOR-CON PO ONE (08:00)
[2018-08-14] MEDS: HALDOL IV PRN (13:06)
[2018-08-14] MEDS: ACCUPRIL PO SCH (13:58)
[2018-08-14] MEDS: REMERON PO SCH (13:58)
[2018-08-14] MEDS: BUSPAR PO SCH ×2 (13:59→21:51)
[2018-08-14] MEDS: KLOR-CON ONE ×2 (14:01→14:02)
[2018-08-14] MEDS: GLUCOPHAGE PO SCH ×2 (14:01→21:54)
[2018-08-14] MEDS: ARICEPT PO SCH (21:50)
[2018-08-14] MEDS: DEPAKOTE PO SCH (21:52)
[2018-08-14] MEDS: CRESTOR PO SCH (21:55)
[2018-08-15] MEDS: MAXIPIME 2 GM in NS 100 ML IV SCH ×2 (00:18→12:55)
--- NOTE | 2018-08-15 00:30 | PROGRESS NOTE ---
DATE: 08/14/2018 SUBJECTIVE: Patient is much more calm today. He does answer questions. He is much more alert and oriented. Denies any chest pains. Denies fevers or chills. PHYSICAL EXAM: VITAL SIGNS: Temperature 98.5, pulse 60, respiratory 20, BP 148/79. General: Patient is awake, alert, currently in no respiratory distress. Very pleasant to talk with this morning. HEENT: Normocephalic. Neck: Supple. CARDIOVASCULAR: Regular rate. No murmurs. Chest: Clear, nonlabored. Abdomen: Soft, nondistended, nontender. Extremities: Moves all extremities. ASSESSMENT: 1. Hypokalemia, improving. 2. Leukocytosis. 3. Acute on chronic renal failure, improved. 4. Septic shock secondary to urinary tract infection. 5. Bacteremia secondary to urinary tract infection, causing Proteus mirabilis. 6. Type 2 diabetes. PLAN: We will continue patient on cefepime. We will transition him to the floor. Get physical therapy involved. Further orders as needed. cc: Gigi Jerez MD
[2018-08-15] MEDS: HUMALOG (PARKWAY) SUBQ SCH ×4 (08:29→21:25)
[2018-08-15 08:53] LABS: BASO# 0.03 X1000 (0.0-0.2); BASO% 0.2 % (0.0-0.8); EOS# 0.05 X1000 (0.0-0.7); EOS% 0.4 % (0.0-10.0); HEMATOCRIT 34.8 % (42.0-52.0); HEMOGLOBIN 11.3 g/dL (14.0-18.0); IMM GRAN# 0.14 X1000 (0.0-0.04); LYMPH# 1.88 X1000 (1.2-3.4); LYMPH% 13.4 % (20.5-51.1); MCH 30.7 PG (27-31); MCHC 32.5 g/dL (33-37); MCV 94.6 FL (81-99); MONO# 1.33 X1000 (0.11-0.59); MONO% 9.5 % (1.7-9.3); MPV 11.1 FL (7.4-10.4); NEUT# 10.56 X1000 (1.4-6.5); NEUT% 75.5 % (42.2-75.2); PLT 157 X1000 (130-400); RBC 3.68 XMIL (4.7-6.1); RDW 14.9 % (11.5-14.5); WBC 13.99 X1000 (4.8-10.8)
[2018-08-15 08:57] LABS: AGAP 14; ALBUMIN 2.5 g/dL (3.5-5.0); ALKALINE PHOSPHATASE 113 U/L (32-122); BUN 12 mg/dL (8-22); CHLORIDE 102 mmol/L (98-107); COSMO 283; CREATININE 0.8 mg/dL (0.7-1.2); ESTIMATED GFR > 60; GLUCOSE 176 mg/dL (70-104); GOT 31 U/L (10-34); GPT 82 U/L (10-44); MAGNESIUM 1.6 mg/dL (1.5-2.7); POTASSIUM 3.6 mmol/L (3.5-5.1); SODIUM 140 mmol/L (136-145); TCO2 24 mmol/L (25-35); TOTAL PROTEIN 6.1 g/dL (6.3-8.3)
[2018-08-15] MEDS: BUSPAR PO SCH ×2 (11:30→21:23)
[2018-08-15] MEDS: GLUCOPHAGE PO SCH ×2 (11:30→21:25)
[2018-08-15] MEDS: ACCUPRIL PO SCH (11:30)
[2018-08-15] MEDS: REMERON PO SCH (11:31)
[2018-08-15 16:03] LABS: INR 1.17; PROTIME 15.5 Seconds (11.0-16.0)
[2018-08-15] MEDS: ARICEPT PO SCH (21:21)
[2018-08-15] MEDS: DEPAKOTE PO SCH (21:26)
[2018-08-15] MEDS: CRESTOR PO SCH (21:27)
--- NOTE | 2018-08-15 22:15 | PROGRESS NOTE ---
DATE: 08/15/2018 SUBJECTIVE: The patient currently is in no distress. He is able continue to communicate a little bit better today. He still has not really been out of bed. Denies any fevers or chills. The patient notes that he is feeling a little better, still confused at times. Denies any GI or issues currently. OBJECTIVE: Temperature 97.9 degrees, pulse 61, respiratory rate 20, BP 147/71. General: The patient is awake, alert. He is in no current respiratory distress. HEENT: Normocephalic, atraumatic. PERRL. Neck supple. Cardiovascular: Regular rate. No murmurs. Chest clear, nonlabored. No crackles, no wheezing. Abdomen soft, nondistended. Extremities: Moves all extremities, although with generalized weakness. Neurologic: No focal changes. ASSESSMENT: 1. Septic shock, resolved. 2. Urinary tract infection due to proteus. 3. Sepsis secondary to proteus. 4. Type 2 diabetes. 5. Leukocytosis. 6. Hypokalemia, resolved. PLAN: We will continue the patient in the hospital. Overall he is doing better. We will place him on Rocephin for 6 weeks through a PICC line, and we will leave on Keflex. cc: iGgi Jerez MD
[2018-08-16] MEDS: MAXIPIME 2 GM in NS 100 ML IV SCH (02:00)
[2018-08-16 07:26] LABS: BASO# 0.01 X1000 (0.0-0.2); BASO% 0.1 % (0.0-0.8); EOS# 0.05 X1000 (0.0-0.7); EOS% 0.5 % (0.0-10.0); HEMOGLOBIN 10.5 g/dL (14.0-18.0); IMM GRAN# 0.13 X1000 (0.0-0.04); IMM GRAN% 1.2 % (0.0-0.5); MCH 29.3 PG (27-31); MCHC 31.8 g/dL (33-37); MCV 92.2 FL (81-99); MONO# 1.17 X1000 (0.11-0.59); MPV 10.9 FL (7.4-10.4); NEUT# 7.58 X1000 (1.4-6.5); NEUT% 71.2 % (42.2-75.2); PLT 188 X1000 (130-400); RBC 3.58 XMIL (4.7-6.1); RDW 14.6 % (11.5-14.5); WBC 10.64 X1000 (4.8-10.8)
[2018-08-16 07:54] LABS: AGAP 16; ALBUMIN 2.8 g/dL (3.5-5.0); ALKALINE PHOSPHATASE 112 U/L (32-122); BUN 14 mg/dL (8-22); CALCIUM 8.1 mg/dL (8.8-10.2); CHLORIDE 105 mmol/L (98-107); COSMO 297; CREATININE 0.8 mg/dL (0.7-1.2); ESTIMATED GFR > 60; GLUCOSE 238 mg/dL (70-104); GOT 28 U/L (10-34); GPT 76 U/L (10-44); MAGNESIUM 1.6 mg/dL (1.5-2.7); POTASSIUM 3.4 mmol/L (3.5-5.1); SODIUM 145 mmol/L (136-145); TCO2 24 mmol/L (25-35); TOTAL PROTEIN 5.5 g/dL (6.3-8.3)
[2018-08-16] MEDS: HUMALOG (PARKWAY) SUBQ SCH ×4 (08:00→20:40)
[2018-08-16] MEDS: GLUCOPHAGE PO SCH ×2 (11:53→20:39)
[2018-08-16] MEDS: REMERON PO SCH (11:53)
[2018-08-16] MEDS: ACCUPRIL PO SCH (11:53)
[2018-08-16] MEDS: BUSPAR PO SCH ×2 (11:54→20:38)
[2018-08-16] MEDS: ROCEPHIN 1 GM in NS 50 ML IV SCH (12:01)
[2018-08-16] MEDS ORDERED: NS 250 ML ONE (14:15)
--- NOTE | 2018-08-16 17:35 | Diag Imaging Result Doc PS360 ---
EXAM: CHEST-PORTABLE 08/16/2018 HISTORY: PICC placement TECHNIQUE: AP portable at 1649 COMMENT: There is a PICC line with its tip just within the right atrium. There is cardiomegaly. There is some bibasilar atelectasis which was also present on 08/11/2018. IMPRESSION: Stable chest. Electronically signed by Jonathan Omalley 08/16/2018 5:32 PM
[2018-08-16] MEDS: CRESTOR PO SCH (20:38)
[2018-08-16] MEDS: DEPAKOTE PO SCH (20:38)
[2018-08-16] MEDS: ARICEPT PO SCH (20:39)
--- NOTE | 2018-08-17 00:17 | PROGRESS NOTE ---
DATE: 08/16/2018 SUBJECTIVE: Patient states this morning he is actually feeling better. Denies any chest pain, palpitations. PHYSICAL EXAMINATION: Vital Signs: Temperature 97 degrees, pulse 63, respiratory 18, BP 151/62. General: The patient is much more alert and oriented today than he has been in the past. He is able to answer some questions and follow some minimal commands. HEENT: Normocephalic. Neck: Supple. Cardiovascular: Regular rate. No murmurs. Chest: Clear and nonlabored. No wheezing. Abdomen: Soft, nondistended. Extremities: Moves all extremities. No edema. Neurologic: Much improved mental status. ASSESSMENT: 1. Proteus urinary tract infection. We will place a PICC line. We will start Rocephin. 2. Hypokalemia, resolved. 3. Leukocytosis, improved. 4. Acute renal failure, resolved. 5. Type 2 diabetes. 6. Metabolic encephalopathy, improved. PLAN: We will attempt to discontinue his restraints. Continue Rocephin and follow. cc: Gigi Jerez MD
[2018-08-17 06:16] LABS: BASO# 0.01 X1000 (0.0-0.2); BASO% 0.1 % (0.0-0.8); EOS# 0.07 X1000 (0.0-0.7); EOS% 0.7 % (0.0-10.0); HEMATOCRIT 34.9 % (42.0-52.0); HEMOGLOBIN 11.2 g/dL (14.0-18.0); IMM GRAN# 0.08 X1000 (0.0-0.04); IMM GRAN% 0.8 % (0.0-0.5); LYMPH# 2.02 X1000 (1.2-3.4); LYMPH% 19.9 % (20.5-51.1); MCH 29.6 PG (27-31); MCHC 32.1 g/dL (33-37); MCV 92.3 FL (81-99); MONO# 1.32 X1000 (0.11-0.59); MPV 10.8 FL (7.4-10.4); NEUT# 6.66 X1000 (1.4-6.5); NEUT% 65.5 % (42.2-75.2); PLT 202 X1000 (130-400); RBC 3.78 XMIL (4.7-6.1); RDW 14.5 % (11.5-14.5); WBC 10.16 X1000 (4.8-10.8)
[2018-08-17 06:25] LABS: AGAP 10; ALBUMIN 2.7 g/dL (3.5-5.0); ALKALINE PHOSPHATASE 108 U/L (32-122); BUN 10 mg/dL (8-22); CALCIUM 8.2 mg/dL (8.8-10.2); CHLORIDE 101 mmol/L (98-107); COSMO 289; CREATININE 0.7 mg/dL (0.7-1.2); ESTIMATED GFR > 60; GLUCOSE 264 mg/dL (70-104); GOT 18 U/L (10-34); GPT 57 U/L (10-44); MAGNESIUM 1.7 mg/dL (1.5-2.7); POTASSIUM 3.4 mmol/L (3.5-5.1); SODIUM 141 mmol/L (136-145); TCO2 30 mmol/L (25-35)
[2018-08-17] MEDS: HUMALOG (PARKWAY) SUBQ SCH ×4 (06:30→22:56)
[2018-08-17] MEDS: ACCUPRIL PO SCH (10:31)
[2018-08-17] MEDS: BUSPAR PO SCH ×2 (10:31→22:54)
[2018-08-17] MEDS: REMERON PO SCH (10:32)
[2018-08-17] MEDS: GLUCOPHAGE PO SCH ×2 (10:32→22:54)
[2018-08-17] MEDS: ROCEPHIN 1 GM in NS 50 ML IV SCH (11:50)
[2018-08-17] MEDS: ARICEPT PO SCH (22:53)
[2018-08-17] MEDS: CRESTOR PO SCH (22:54)
[2018-08-17] MEDS: DEPAKOTE PO SCH (22:54)
--- NOTE | 2018-08-18 00:29 | PROGRESS NOTE ---
DATE: 08/17/2018 SUBJECTIVE: Patient seen and examined by myself. He currently he is much more awake, alert. He is in no distress. PHYSICAL EXAMINATION: Vital Signs: Temperature 98 degrees, pulse 69, respiratory 18, BP 149/79. General: Patient is awake, alert. He is in no distress. He is lying flatly in the bed. HEENT: Normocephalic. Neck: Supple. Cardiovascular: Regular rate. Chest: Clear and unlabored. Abdomen: Soft. Appears nondistended, nontender. Extremities: Moves all extremities. ASSESSMENT: 1. Do Not Resuscitate. 2. Proteus urinary tract infection, currently on Rocephin. He has had a PICC line placed. 3. Septic shock, resolved. 4. Metabolic encephalopathy secondary to urinary tract infection, resolved. 5. Type 2 diabetes. PLAN: We will continue patient in the hospital. We will discontinue his [place] and we will follow. Indication put. cc: Gigi Jerez MD
[2018-08-18 06:06] LABS: BASO# 0.01 X1000 (0.0-0.2); BASO% 0.1 % (0.0-0.8); EOS% 0.9 % (0.0-10.0); HEMATOCRIT 32.9 % (42.0-52.0); HEMOGLOBIN 10.5 g/dL (14.0-18.0); IMM GRAN# 0.05 X1000 (0.0-0.04); IMM GRAN% 0.4 % (0.0-0.5); LYMPH# 1.81 X1000 (1.2-3.4); LYMPH% 15.9 % (20.5-51.1); MCH 29.6 PG (27-31); MCHC 31.9 g/dL (33-37); MCV 92.7 FL (81-99); MONO# 0.89 X1000 (0.11-0.59); MONO% 7.8 % (1.7-9.3); MPV 10.4 FL (7.4-10.4); NEUT# 8.49 X1000 (1.4-6.5); NEUT% 74.9 % (42.2-75.2); PLT 219 X1000 (130-400); RBC 3.55 XMIL (4.7-6.1); RDW 14.4 % (11.5-14.5); WBC 11.35 X1000 (4.8-10.8)
[2018-08-18 06:30] LABS: AGAP 11; ALBUMIN 2.6 g/dL (3.5-5.0); ALKALINE PHOSPHATASE 102 U/L (32-122); BUN 9 mg/dL (8-22); CALCIUM 8.3 mg/dL (8.8-10.2); CHLORIDE 104 mmol/L (98-107); COSMO 292; CREATININE 0.7 mg/dL (0.7-1.2); ESTIMATED GFR > 60; GLUCOSE 178 mg/dL (70-104); GOT 17 U/L (10-34); GPT 44 U/L (10-44); MAGNESIUM 1.8 mg/dL (1.5-2.7); SODIUM 145 mmol/L (136-145); TCO2 29 mmol/L (25-35); TOTAL PROTEIN 5.8 g/dL (6.3-8.3)
[2018-08-18] MEDS: HUMALOG (PARKWAY) SUBQ SCH ×2 (06:52→11:55)
[2018-08-18] MEDS ORDERED: KLOR-CON PO ONE (09:59)
[2018-08-18] MEDS: ACCUPRIL PO SCH (10:12)
[2018-08-18] MEDS: BUSPAR PO SCH (10:12)
[2018-08-18] MEDS: GLUCOPHAGE PO SCH ×2 (10:12→11:18)
[2018-08-18] MEDS: REMERON PO SCH (10:13)
[2018-08-18] MEDS: ROCEPHIN 1 GM in NS 50 ML IV SCH (11:50)
[2018-08-18 12:31] VITALS: BP 168/55
--- NOTE | 2018-08-18 14:53 | PROGRESS NOTE ---
DATE: 08/18/2018 SUBJECTIVE: Patient is much more alert this morning. He is oriented to time person, place and place. Denies any current chest pains, fevers, states overall he is feeling well, however he is still easily confused. PHYSICAL EXAMINATION: Temp 98 degrees, pulse 60, respiratory 20, BP 143/52.General: Patient is awake, alert. He is in no current respiratory distress. Pleasant to talk with, lying flat in the bed. He is out of restraints. HEENT: Normocephalic. Neck: Supple. CARDIOVASCULAR: Regular rate. No murmurs. Chest: Clear. Abdomen: Soft, nondistended. Extremities: Moves all extremities. ASSESSMENT: 1. Proteus urinary tract infection currently on Rocephin via PICC line. 2. Sepsis. 3. Type 2 diabetes. 4. Hypokalemia, improved but still low at 3.0. We will replace orally. 5. Leukocytosis, improved. 6. Adult failure to thrive. Continues to be problematic. 7. Metabolic encephalopathy, appears resolved. Uncertain of the patient's baseline but he certainly appears to be close to it. PLAN: We will continue Rocephin. Continue to follow. Further orders as needed. cc: Gigi Jerez MD
--- NOTE | 2018-08-18 16:19 | EKG Report ---
Test Performed on : 08/18/2018 3:55:12 PM Test Reason : RHYTHEM CHANGE Blood Pressure : / mmHG Vent. Rate : 063 BPM Atrial Rate : 234 BPM P-R Int : 000 ms QRS Dur : 144 ms QT Int : 698 ms P-R-T Axes : 000 -75 236 degrees QTc Int : 714 ms Ventricular-paced rhythm with occasional premature ventricular complexes. 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 Unconfirmed Result
--- NOTE | 2018-08-19 03:34 | DISCHARGE SUMMARY ---
ADMISSION DATE: 08/09/2018 DISCHARGE DATE: 08/18/2018 DIAGNOSES: 1. Septic shock secondary to Proteus urinary tract infection. 2. Metabolic encephalopathy. 3. Acute kidney injury. 4. Abnormal TSH. 5. Alzheimer's dementia. 6. Diabetes mellitus type 2. 7. Hypokalemia. DIAGNOSTICS: 1. Chest x-ray revealed a left-sided dual-chamber pacemaker. There are sternotomy wires. There is cardiomegaly. Lung volumes are low with bibasilar nonspecific atelectasis. 2. Flat and upright abdomen. 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 There is mild constipation. No bowel obstruction or free air. 3. CT of the head revealed atrophy and chronic microvascular disease. No acute disease. 4. Chest x-ray 08/11/2018 revealed mild interval improvement in lung bases. 5. 08/16/2018 chest x-ray is status post PICC line placement. The PICC is within the right atrium. MICROBIOLOGY: Blood cultures x2 as well as urine culture all revealed Proteus mirabilis. HOSPITAL COURSE: Mr. Hernandez presented to [facility] ER from [facility] for which he had been a patient approximately an hour. Reportedly, he was sent to [facility] from [facility] for increased altered mental status and agitation. He was found to be in septic shock secondary to a Proteus urinary tract infection as well as bacteremia. He was initially hypotensive. He was covered with cefepime, Zyvox and vancomycin antibiotics. He was placed on Levophed and admitted to ICU for close monitoring as well as IV hydrocortisone. As he was improved, we were able to stop the IV hydrocortisone. Levophed was weaned off on the . The patient maintained his blood pressures after this. He was confused throughout the hospitalization, sometimes more than others. He was combative at times. We treated his electrolytes and repleted them as is appropriate. Pattern blood glucoses were monitored and he was covered with sliding scale insulin. After reviewing his sensitivities with Dr. Jared Perry, Infectious Disease, a PICC line was placed to receive Rocephin 1 g daily. The patient actually improved this morning. He was awake. He was more alert. He was oriented to time, person and place. He carried on a conversation, and approximately 16:25 he started experiencing some ventricular ectopy. He ultimately went into ventricular fibrillation and at 16:32 he was pronounced . Dictated by LIZETTE Wu for Gigi Jerez MD This chart was documented by, LIZETTE Wu and accurately reflects the services performed, treatment plan and medical decisions as attested by the providers signature Gigi Jerez MD. cc: LIZETTE Wu MD
--- NOTE | 2018-08-19 03:36 | DISCHARGE SUMMARY ---
ADMISSION DATE: 08/09/2018 DISCHARGE DATE: 08/18/2018 ADDENDUM: Patient seen and examined earlier by myself. Full note dictated and discussed with nurse practitioner. As noted on a progress note, Mr. Hernandez actually was doing very well this morning. He was more alert and oriented than I had seen him this week. He was talking with the nurse. He told her that she needed to call I believe Mo? Stated that 2 or 3 times and then immediately stop breathing. He went into ventricular fibrillation. His pacemaker did not fire and patient . Please see full note. cc: Gigi Jerez MD
== END 2018-08-18 16:32 | disposition expired | DRG 698 ==
LOC: P.ED 20:43 → P.ICU 08-09 01:29 → SUATTDRO 08-09 01:29 → P.MEDSURG 08-14 12:23
PROVIDERS: ATTEND Family Medicine
CPT/HCPCS: 36415; 36569; 70450; 71010; 71045; 74022; 80048; 80053; 80104; 80301; 80305; 81001; 82009; 82550; 82805; 82948; 83605; 83735; 84443; 84484; 85025; 85027; 85610; 85730; 87040; 87077; 87088; 87186; 93005; 94761; 96361; 96374; 97163; 99285; A9270; G0431; G0434; G0477; J0131; J0692; J0696; J1630; J1720; J1815; J2020; J3370; J7030; J7050; XXXXX